=== PATIENT | male | born 1955 | race American Indian/Alaskan Native ===

== ENCOUNTER 2017-05-11 10:26 | Day surgery (SDC) | payer OTHER ==
[2017-05-11] MEDS ORDERED: NACL 0.9% 1000 ML 1,000 ML IV SCH (11:00)
--- NOTE | 2017-05-11 12:38 | Anesthesia Consultation ---
Anesthesia Consult and Med Hx Date of service: 05/11/17 - Airway Anesthetic Teeth Evaluation: Edentulous ROM Head & Neck: Adequate Mental/Hyoid Distance: Adequate Mallampati Class: Class III Intubation Access Assessment: Possibly Difficult - Pulmonary Exam CTA: Yes - Cardiac Exam Anesthetic Concerns: sinus arrythmia - Pre-Operative Health Status ASA Pre-Surgery Classification: ASA3 Proposed Anesthetic Plan: MAC - Pulmonary Hx Sleep Apnea: Yes (Snores ) - Cardiovascular System Hx Hypertension: Yes Hx Cardia Arrhythmia: Yes - Other Systems Hx Obesity: Yes
--- NOTE | 2017-05-11 12:38 | Anesthesia Day of Surgery ---
Anesthesia Day of Surgery - Day of Surgery Patient Examined: Yes Patient H&P Reviewed: Yes Patient is NPO: Yes
[2017-05-11] MEDS ORDERED: DIPRIVAN 10 MG/ML IV ONE ×3 (12:53→14:45)
[2017-05-11] MEDS ORDERED: WATER FOR IRRIG STERILE IR ONE (14:12)
[2017-05-11] MEDS ORDERED: WATER FOR IRRIG STERILE ONE (14:12)
--- NOTE | 2017-05-11 14:47 | Operative Report ---
Operative Report Operative Report: Date of procedure: 05/11/2017 Procedure: Colonoscopy with multiple hot biopsy polypectomies and multiple polyp ablations. Attending physician: Fritz Prather MD Commercial Banker: Fritz Prather MD Indication: Patient is a 6-year-old male who presents for screening colonoscopy. A colonoscopy serves to evaluate patient for colorectal cancer screening. Consent: Informed consent was obtained after advising the patient and family regarding nature of this procedure, its indications, potential benefits as well as possible complications including but not limited to bleeding perforation and adverse reaction to medication, infection as well as other cardiopulmonary complications. An informed written and verbal consent was then obtained after due opportunity was provided for questions and answers. Monitoring: Patient was monitored continuously with pulse oximetry and electrocardiographic recordings as well as blood pressure recordings. Vital signs remained stable throughout this procedure with no untoward events. Preoperative assessment: Patient was assessed immediately prior to this procedure for capacity to tolerate monitored anesthesia care and moderate sedation as well as general anesthesia. Patient's ASA classification is 2, Mallampati class is 2, Hyomental distance is 3. Instrument: AquaMostn video colonoscope Medications: Propofol given intravenously in divided doses. For details please refer to anesthesia records. Description of procedure: Patient was placed in the left lateral decubitus position after achieving sedation, a digital rectal examination was performed following which the colonoscope was introduced into the anal verge and advanced to the cecum which was identified by the cecal valve, the appendiceal orifice, as well as by the cecal strap and direct transillumination. The colonoscope was subsequently withdrawn with careful inspection of all mucosal surfaces. Patient tolerated this procedure well and was subsequently taken to the recovery room. The following findings were noted. Findings: There were a few scattered diverticula in the sigmoid colon . There also, were multiple diminutive flat polyps in the rectum which were ablated. In addition there were 2 sessile polyps in the rectum which were removed by hot biopsy polypectomy. There were additionally 3 polyps in the sigmoid colon which were removed by hot biopsy polypectomy. The descending colon was normal. The transverse colon was normal. Patient had a diminutive polyp in the ascending colon that was flat. It was ablated. There was an adjoining 6 mm sessile polyp in the ascending colon which was removed by hot biopsy polypectomy and retrieved. The rest of the examination to the cecum was normal. On the retroflex view at the mL verge, patient had internal hemorrhoids. Impression: Multiple colon polyps status post hot biopsy polypectomy and ablation. Multiple rectal polyp status post hot biopsy polypectomy and ablation. Mild diverticulosis. Internal hemorrhoids. Plan: Follow pathology report High-fiber diet. Repeat colonoscopy in 5 years, if polyps are adenomatous..
--- NOTE | 2017-05-11 14:48 | Discharge Summary ---
Short Stay Discharge Plan Activity: advance as tolerated Weight Bearing Status: Weight Bear as Tolerated Diet: regular
[2017-05-11 15:24] VITALS: BP 118/69
== END 2017-05-11 10:27 | disposition home or self-care (01) ==
LOC: GIO 10:26
PROVIDERS: ATTEND Internal Medicine Gastroenterology
DX: Z12.11 Encounter for screening for malignant neoplasm of colon (principal); K57.30 Diverticulosis of large intestine without perforation or abscess without bleeding; D12.5 Benign neoplasm of sigmoid colon; D12.2 Benign neoplasm of ascending colon; D12.8 Benign neoplasm of rectum; K64.8 Other hemorrhoids; I10 Essential (primary) hypertension; E66.9 Obesity, unspecified; J45.909 Unspecified asthma, uncomplicated; Z79.82 Long term (current) use of aspirin
CPT/HCPCS: 45384; 45388; 88305; J2704; J7030